=== PATIENT | male | born 2000 | race Caucasian/White ===

== ENCOUNTER 2018-03-21 21:51 | Emergency (ER) | payer BC ==
[2018-03-21] MEDS ORDERED: Ondansetron HCl/PF 4 MG/2 ML Vial ONE (21:57)
== END 2018-03-21 23:02 | disposition home or self-care (01) ==
LOC: BURERS 21:51
DX: F10.129 Alcohol abuse with intoxication, unspecified (principal)
CPT/HCPCS: 96374; J2405